=== PATIENT | female | born 1985 | race Caucasian/White ===

== ENCOUNTER 2024-08-17 19:32 | Emergency (ER) | payer BC, SELFPAY ==
[2024-08-17 19:44] VITALS: BP 130/62; PULSE 65; TEMP 36.7; O2SAT 99; BMI 23.0
--- NOTE | 2024-08-17 20:24 | CT_ITS ---
The [address] [address] Patient Name: JOSELO SPIVEY MRN: [id number] date: 1985 Sex: F Assigned Patient Location: ER Current Patient Location: .[facility] Accession/Order Number: [id number] Exam Date: 08/17/2024 20:37 Report Date: 08/17/2024 21:58 At the request of: GRECIA TANG Procedure: CT head/brain wo con EXAM: CT head/brain wo con HISTORY: Headache COMPARISON: None. TECHNIQUE: Axial CT scans through the head were obtained without IV contrast administration. Dose reduction techniques were achieved by using: automated exposure control and/or adjustment of mA and /or kV according to patient size and/or use of iterative reconstruction technique. FINDINGS: There is no acute intracranial hemorrhage or abnormal extra-axial fluid collection. No mass effect or midline shift is seen. There is no evidence of large acute territorial infarction. There is no hydrocephalus. To the limit of CT, the posterior fossa appears unremarkable. The calvaria and extra cranial soft tissues are unremarkable. The visualized orbits show no abnormality. The visualized paranasal sinuses show no air-fluid level. Mastoid air cells are clear. CT/CT head/brain wo con IMPRESSION: No acute intracranial process. Electronically authenticated by: LOKI ROJAS Date: 08/17/2024 21:58
--- NOTE | 2024-08-17 20:26 | ED_ITS ---
Documented by User: VASILIY Johnson 08/17/24 21:50 HPI HPI - General Adult General Chief complaint: Headache Stated complaint: HEADACHE Time Seen by Provider: 08/17/24 20:03 Source: patient Mode of arrival: walk-in History of Present Illness HPI narrative: Patient is a pleasant 39-year-old female who presents to the emergency department for right sided headache for the last 2 days. She reports pain radiating from the right ear into the right side of the jaw. She denies any injury or trauma, she has no history of migraines. She is not concerned for . She has not had any other significant upper respiratory symptoms or fevers. She states she thought she might have an early ear infection so she went to urgent care but states the provider told her that she did not see anything in the patient's ear and that she should come to the ER for testing. Related Data Home Medications ?Medication ?Instructions ?Recorded ?Confirmed dextroamphetamine-amphetamine ER 25 mg PO DAILY 08/17/24 08/17/24 25 mg capsule,3 bead,ext release 24hr (Mydayis) Previous Rx's ?Medication ?Instructions ?Recorded amoxicillin 500 mg capsule 500 mg PO TID 10 days #30 caps 08/17/24 [id number]-eoejplglbufjv-bbcjpnwo 1 cap PO Q6H PRN headache #12 caps 08/17/24 50 mg-300 mg-40 mg capsule (Fioricet) ketorolac 10 mg tablet 10 mg PO TID PRN pain #10 tabs 08/17/24 Allergies Allergy/AdvReac Type Severity Reaction Status Date / Time No Known Drug Allergies Allergy Verified 08/17/24 19:48 Opioid HPI Opioid Management Most Recent Opioid Data: Last Pain Scale 10 08/17/24 20:31 08/17/24 Review of Systems ROS Constitutional Denies: fever or chills Ears, nose, mouth, and throat Reports: ear pain; Denies: throat pain or nasal congestion Cardiovascular Denies: chest pain Respiratory Denies: shortness of breath or cough Gastrointestinal Denies: nausea or vomiting Musculoskeletal Denies: back pain Integumentary/Breast Denies: rash Neurological Denies: numbness in extremities or weakness in extremities Hematologic/Lymphatic Denies: easy bruising or easy bleeding PFSH PFSH Social History Little interest or pleasure in doing things: not at all Feeling down, depressed, or hopeless: not at all Exam Narrative Exam Narrative: Gen.: Awake, alert, in no distress Head: Normocephalic, atraumatic ENT: Moist mucous membranes, bilateral TMs are bulging, right external canal with erythema, mild injection noted of the right TM. No facial swelling noted. Respiratory: No respiratory distress Extremities: Moves extremities equally Psych: Normal mood and affect Neuro: No focal neuro deficit Skin: Warm, dry, intact Constitutional Vital Signs, click to edit/add: Last Vital Signs Temp 98.1 F 08/17/24 19:44 Pulse 65 08/17/24 19:44 Resp 20 08/17/24 19:44 BP 130/62 08/17/24 19:44 Pulse Ox 99 08/17/24 19:44 O2 Del Method Room Air 08/17/24 19:44 Course Vital Signs Vital signs: Vital Signs Temperature 98.1 F 08/17/24 19:44 Pulse Rate 65 08/17/24 19:44 Respiratory Rate 20 08/17/24 19:44 Blood Pressure 130/62 08/17/24 19:44 Pulse Oximetry 99 08/17/24 19:44 Oxygen Delivery Method Room Air 08/17/24 19:44 Temperature 98.1 F 08/17/24 19:44 Pulse Rate 65 08/17/24 19:44 Respiratory Rate 20 08/17/24 19:44 Blood Pressure 130/62 08/17/24 19:44 Pulse Oximetry 99 08/17/24 19:44 Oxygen Delivery Method Room Air 08/17/24 19:44 Medical Decision Making MDM Narrative Medical decision making narrative: 2148: Patient's physical exam is consistent with a right otitis media. She has headache distribution consistent with facial pain, likely secondary to the infection and fluid in her ear. Discussed performing a CT scan as the patient does not have a significant history of headaches, she prefers that the testing be done for peace of mind. CT of the brain is pending at this time. Patient medicated with amoxicillin, intramuscular Toradol and Solu-Medrol for headache in the ER. Case is turned over to attending physician at this time for disposition. Patient is hemodynamically stable with a benign neuroexam. SHARED APC VISIT, PHYSICIAN ATTESTATION: [id number] I performed a substantive part of the MDM during the patient?s E/M visit. I personally evaluated and examined the patient. I personally made or approved the documented management plan and acknowledge its risk of complications. Medical Records Medical records reviewed: Yes I reviewed the patient's medical records Discharge Plan Discharge Chief Complaint: Headache Clinical Impression: Headache, Acute right otitis media Patient Disposition: Home, Self-Care Time of Disposition Decision: 22:11 Prescriptions / Home Meds: New amoxicillin 500 mg capsule 500 mg PO TID 10 Days Qty: 30 0RF ketorolac 10 mg tablet 10 mg PO TID PRN (Reason: pain) Qty: 10 0RF qttcshagst-zgryldelkyfmp-cvtp [Fioricet] 50-300-40 mg capsule 1 cap PO Q6H PRN (Reason: headache) Qty: 12 0RF Rx Instructions: DX: R51.9 No Action dextroamphetamine-amphetamine [Mydayis] 25 mg capsule, ER triphasic 24 hr 25 mg PO DAILY Patient Comments: have not taken in one week Print Language: Burmese Instructions: Ear Infection (ED), Acute Headache (ED) Referrals: Physician,Non-Staff, [Primary Care Provider] - 1 week Documented by User: Isabella Bennett MD 08/17/24 22:11 HPI HPI - General Adult General Chief complaint: Headache Stated complaint: HEADACHE Time Seen by Provider: 08/17/24 20:03 Related Data Home Medications ?Medication ?Instructions ?Recorded ?Confirmed dextroamphetamine-amphetamine ER 25 mg PO DAILY 08/17/24 08/17/24 25 mg capsule,3 bead,ext release 24hr (Mydayis) Previous Rx's ?Medication ?Instructions ?Recorded amoxicillin 500 mg capsule 500 mg PO TID 10 days #30 caps 08/17/24 kfwtzarqrf-ckuplqelcapod-wfjasqwq 1 cap PO Q6H PRN headache #12 caps 08/17/24 50 mg-300 mg-40 mg capsule (Fioricet) ketorolac 10 mg tablet 10 mg PO TID PRN pain #10 tabs 08/17/24 Allergies Allergy/AdvReac Type Severity Reaction Status Date / Time No Known Drug Allergies Allergy Verified 08/17/24 19:48 Opioid HPI Opioid Management Most Recent Opioid Data: Last Pain Scale 10 08/17/24 20:31 08/17/24 PFSH PFSH Social History Little interest or pleasure in doing things: not at all Feeling down, depressed, or hopeless: not at all Exam Constitutional Vital Signs, click to edit/add: Last Vital Signs Temp 98.1 F 08/17/24 19:44 Pulse 65 08/17/24 19:44 Resp 20 08/17/24 19:44 BP 130/62 08/17/24 19:44 Pulse Ox 99 08/17/24 19:44 O2 Del Method Room Air 08/17/24 19:44 Course Vital Signs Vital signs: Vital Signs Temperature 98.1 F 08/17/24 19:44 Pulse Rate 65 08/17/24 19:44 Respiratory Rate 20 08/17/24 19:44 Blood Pressure 130/62 08/17/24 19:44 Pulse Oximetry 99 08/17/24 19:44 Oxygen Delivery Method Room Air 08/17/24 19:44 Temperature 98.1 F 08/17/24 19:44 Pulse Rate 65 08/17/24 19:44 Respiratory Rate 20 08/17/24 19:44 Blood Pressure 130/62 08/17/24 19:44 Pulse Oximetry 99 08/17/24 19:44 Oxygen Delivery Method Room Air 08/17/24 19:44 Medical Decision Making [facility] Narrative Medical decision making narrative: 2148: Patient's physical exam is consistent with a right otitis media. She has headache distribution consistent with facial pain, likely secondary to the infection and fluid in her ear. Discussed performing a CT scan as the patient does not have a significant history of headaches, she prefers that the testing be done for peace of mind. CT of the brain is pending at this time. Patient medicated with amoxicillin, intramuscular Toradol and Solu-Medrol for headache in the ER. Case is turned over to attending physician at this time for disposition. Patient is hemodynamically stable with a benign neuroexam. SHARED APC VISIT, PHYSICIAN ATTESTATION: [id number] I performed a substantive part of the MDM during the patient?s E/M visit. I personally evaluated and examined the patient. I personally made or approved the documented management plan and acknowledge its risk of complications. This 39-year-old female was seen and evaluated in conjunction with the physician integration assistant. Please refer to her full H&P. She presents for a right sided headache and was found to have acute right otitis media. She was concerned after urgent care told her that they did not see anything abnormal. She requested a CT scan. CT scanning is negative for acute findings. This was discussed with her and she was given a copy of her report. She is otherwise fe eling better and stable for discharge. Medical Records Medical records narrative: [place] [address] CT Scan Report Signed Patient: JOSELO SPIVEY MR#: [id number] : 1985 Acct:[id number] Age/Sex: 39 / F ADM Date: 08/17/24 Loc: ER Attending Dr: Ordering Physician: Grecia Tang Date of Service: 08/17/24 Procedure(s): CT head/brain wo con Accession Number(s): [id number] cc: Physician,Non-Staff M.D.~ The [address] [address] Patient Name: JOSELO SPIVEY MRN: [id number] date: 1985 Sex: F Assigned Patient Location: ER Current Patient Location: ED.MAIN Accession/Order Number: [id number] Exam Date: 08/17/2024 20:37 Report Date: 08/17/2024 21:58 At the request of: GRECIA TANG Procedure: CT head/brain wo con EXAM: CT head/brain wo con HISTORY: Headache COMPARISON: None. TECHNIQUE: Axial CT scans through the head were obtained without IV contrast administration. Dose reduction techniques were achieved by using: automated exposure control and/or adjustment of mA and /or kV according to patient size and/or use of iterative reconstruction technique. FINDINGS: There is no acute intracranial hemorrhage or abnormal extra-axial fluid collection. No mass effect or midline shift is seen. There is no evidence of large acute territorial infarction. There is no hydrocephalus. To the limit of CT, the posterior fossa appears unremarkable. The calvaria and extra cranial soft tissues are unremarkable. The visualized orbits show no abnormality. The visualized paranasal sinuses show no air-fluid level. Mastoid air cells are clear. CT/CT head/brain wo con IMPRESSION: No acute intracranial process. Discharge Plan Discharge Chief Complaint: Headache Clinical Impression: Headache, Acute right otitis media Patient Disposition: Home, Self-Care Time of Disposition Decision: 22:11 Prescriptions / Home Meds: New amoxicillin 500 mg capsule 500 mg PO TID 10 Days Qty: 30 0RF ketorolac 10 mg tablet 10 mg PO TID PRN (Reason: pain) Qty: 10 0RF lxonwaivml-mplhhotvwanei-noxe [Fioricet] 50-300-40 mg capsule 1 cap PO Q6H PRN (Reason: headache) Qty: 12 0RF Rx Instructions: DX: R51.9 No Action dextroamphetamine-amphetamine [Mydayis] 25 mg capsule, ER triphasic 24 hr 25 mg PO DAILY Patient Comments: have not taken in one week Print Language: Burmese Instructions: Ear Infection (ED), Acute Headache (ED) Referrals: Physician,Non-Staff, MD [Primary Care Provider] - 1 week
[2024-08-17] MEDS: KETOROLAC TROMETHAMINE 60 MG/2 ML VIAL IM (20:31)
[2024-08-17] MEDS: METHYLPREDNISOLONE SOD SUCC PF 125 MG/2 ML VIAL IM (20:32)
[2024-08-17] MEDS: AMOXICILLIN 500 MG CAPSULE PO (21:55)
--- NOTE | 2024-08-17 22:08 | PC.NURSE ---
this RN assumed care of pt at this time from Felicia DEGROOT. pt resting on ED cart with no distress. pt aware of pending CT scan and denies needs at this time.
== END 2024-08-17 22:31 | disposition home or self-care (01) ==
PROVIDERS: Emergency Provider Emergency Medicine
DX: R51.9 Headache, unspecified (principal); H66.91 Otitis media, unspecified, right ear
CPT/HCPCS: 70450; 96372; 99285; J1885; J2919